=== PATIENT | male | born 1970 | race Caucasian/White ===

== ENCOUNTER 2018-05-05 13:27 | Emergency (ER) | payer OTHER ==
[~2018-05-05] VITALS: Ht 172.7 cm; Wt 86.2 kg
[~2018-05-05 13:27] MED LIST: CLOMID50 MG; DOXYCYCLINE 10100 MG PO; ED-SPAZ0.125 MG PO; FLAGYL500 MG; HYDROCODONE-AP1 EAC6 PO; IBUPROFEN 800800 M1 PO; NAPROSYN375 MG PO; NORCO 5-325 TA1 EACH PO; NOVAREL; ONDANSETRON HCL4 M2 PO; PREVACID 30MG C30 M1; TAMSULOSIN HCL0.4 M1 PO; VICODIN 5-3001 EACH PO; VITAMIN D-32000 UNIT; XANAX 0.25 MG0.25 MG PO; ZPAK PO
[2018-05-05] MEDS ORDERED: ASPIR 8181 MG PO (13:47)
[2018-05-05] MEDS ORDERED: URSO FORTE500 MG (13:47)
[2018-05-05] MEDS ORDERED: [UNRECOGNIZED DRUG - OTHER] (13:47)
[2018-05-05] MEDS ORDERED: CLEOCIN HCL150 MG PO (13:56)
[2018-05-05 14:47] VITALS: BP 148/81
== END 2018-05-05 14:48 | disposition home or self-care (01) ==
LOC: M.ERS 13:27
DX: S61.211A Laceration without foreign body of left index finger without damage to nail, initial encounter (principal); W26.8XXA Contact with other sharp object(s), not elsewhere classified, initial encounter; Y93.89 Activity, other specified; Y92.89 Other specified places as the place of occurrence of the external cause; Y99.8 Other external cause status; K21.9 Gastro-esophageal reflux disease without esophagitis; Z88.1 Allergy status to other antibiotic agents; Z88.2 Allergy status to sulfonamides; Z88.8 Allergy status to other drugs, medicaments and biological substances; Z91.018 Allergy to other foods